=== PATIENT | female | born 1995 | race Caucasian/White ===

== ENCOUNTER 2020-06-18 13:10 | Emergency (ER) | payer OTHER ==
[~2020-06-18 13:10] MED LIST: NORCO 5-325 TA1 EACH PO
[2020-06-18 18:42] LABS: HEMOGLOBIN 12.3 gm/dl (12.3-15.3); RED BLOOD COUNT 4.13 M/UL (4.00-5.10); WHITE BLOOD COUNT 12.8 K/UL (4.5-11.0)
[2020-06-18 19:08] LABS: BUN/CREATININE RATIO 16 (0-10)
[2020-06-18] MEDS ORDERED: PULMICORT0.5 MG/21 INH (20:00)
[2020-06-18] MEDS ORDERED: DELSYM30 MG/5 ML PO (20:00)
[2020-06-18] MEDS ORDERED: NEB MACHINE (20:00)
== END 2020-06-18 20:02 | disposition home or self-care (01) ==
LOC: ER1 13:10
PROVIDERS: Physician Assistant Medical
DX: O99.512 Diseases of the respiratory system complicating pregnancy, second trimester (principal); J45.901 Unspecified asthma with (acute) exacerbation; O99.612 Diseases of the digestive system complicating pregnancy, second trimester; K21.9 Gastro-esophageal reflux disease without esophagitis; Z20.822 Contact with and (suspected) exposure to COVID-19; Z79.899 Other long term (current) drug therapy; Z3A.21 21 weeks gestation of pregnancy
CPT/HCPCS: 0240U; 71045; 80053; 81001; 85025; 99285

== ENCOUNTER → 2020-07-04 | Outpatient (CLI) | payer OTHER ==
[~2020-07-04] MED LIST changes: +DELSYM30 MG/5 ML PO; +DOCUSATE SODIU100 MG PO; +HYDROCODON-ACE1 EAC4 PO; +IBUPROFEN600 MG PO; +NEB MACHINE; +PEPCID20 MG PO; +PRENATAL TABLE1 EAC1 PO; +PULMICORT0.5 MG/21 INH
[2020-07-04 19:07] LABS: HEMOGLOBIN 11.7 gm/dl (12.3-15.3); RED BLOOD COUNT 4.03 M/UL (4.00-5.10); WHITE BLOOD COUNT 13.6 K/UL (4.5-11.0)
[2020-07-04 19:24] LABS: BUN/CREATININE RATIO 12 (0-10)
== END ==
LOC: LAB 18:23
PROVIDERS: Physician Assistant
DX: O10.919 Unspecified pre-existing hypertension complicating pregnancy, unspecified trimester (principal); R10.11 Right upper quadrant pain; Z3A.00 Weeks of gestation of pregnancy not specified
CPT/HCPCS: 80053; 80076; 83615; 83690; 84550; 85025; 85379; 85610

== ENCOUNTER 2020-10-21 13:34 | Outpatient (CLI) | payer OTHER ==
[~2020-10-21 13:34] MED LIST changes: -DOCUSATE SODIU100 MG PO; -HYDROCODON-ACE1 EAC4 PO; -IBUPROFEN600 MG PO; -PEPCID20 MG PO; -PRENATAL TABLE1 EAC1 PO
[2020-10-21 15:01] LABS: RED BLOOD COUNT 4.28 M/UL (4.00-5.10); WHITE BLOOD COUNT 12.1 K/UL (4.5-11.0)
== END 2020-10-21 14:41 | disposition home or self-care (01) ==
LOC: GENOP 13:34
PROVIDERS: Obstetrics & Gynecology
DX: Z01.812 Encounter for preprocedural laboratory examination (principal); O36.60X0 Maternal care for excessive fetal growth, unspecified trimester, not applicable or unspecified; Z3A.00 Weeks of gestation of pregnancy not specified
CPT/HCPCS: 81001; 85025

== ENCOUNTER 2020-10-23 07:30 | Inpatient (IN) | payer OTHER ==
[~2020-10-23] VITALS: Ht 160 cm; Wt 96.6 kg
[2020-10-23] MEDS ORDERED: PEPCID20 MG PO (09:59)
[2020-10-23] MEDS ORDERED: PRENATAL TABLE1 EAC1 PO (09:59)
[2020-10-23] MEDS ORDERED: DOCUSATE SODIU100 MG PO (10:11)
[2020-10-23] MEDS ORDERED: HYDROCODON-ACE1 EAC4 PO (10:11)
[2020-10-23] MEDS ORDERED: IBUPROFEN600 MG PO (10:11)
[2020-10-24 05:59] LABS: HEMOGLOBIN 8.8 gm/dl (12.3-15.3)
== END 2020-10-25 16:30 | disposition home or self-care (01) | DRG 788 ==
LOC: OB 09:17
PROVIDERS: ADMIT Obstetrics & Gynecology
PROC: 4A1HXCZ Monitoring of Products of Conception, Cardiac Rate, External Approach (ICD-10-PCS; 2020-10-23)
PROC: 10D00Z1 Extraction of Products of Conception, Low, Open Approach (ICD-10-PCS; principal; 2020-10-23 07:30)
DX: O34.211 Maternal care for low transverse scar from previous cesarean delivery (principal); Z3A.39 39 weeks gestation of pregnancy; Z37.0 Single live birth; Z20.822 Contact with and (suspected) exposure to COVID-19; O99.344 Other mental disorders complicating childbirth; F32.9 Major depressive disorder, single episode, unspecified; O99.52 Diseases of the respiratory system complicating childbirth; J45.909 Unspecified asthma, uncomplicated; K42.9 Umbilical hernia without obstruction or gangrene; O99.62 Diseases of the digestive system complicating childbirth; Z88.8 Allergy status to other drugs, medicaments and biological substances; Z83.3 Family history of diabetes mellitus; Z83.6 Family history of other diseases of the respiratory system; Z83.49 Family history of other endocrine, nutritional and metabolic diseases; Z82.49 Family history of ischemic heart disease and other diseases of the circulatory system
CPT/HCPCS: 36415; 82800; 85014; 85018; 90707; 90715; C9113; J0690; J2274; J2405; J2590; J7120